=== PATIENT | female | born 1970 | race Caucasian/White ===

== ENCOUNTER → 2025-09-05 | Outpatient (CLI) | payer BC, SELFPAY ==
[2025-09-07 04:07] LABS: PROGESTERONE 0.6 ng/mL (.)
== END | disposition home or self-care (01) ==
LOC: MTLAB 13:56
PROVIDERS: PCP Nurse Practitioner Family; Referring Provider Nurse Practitioner Family; Visit Provider Nurse Practitioner Family
DX: R61 Generalized hyperhidrosis (principal); G47.00 Insomnia, unspecified; H93.19 Tinnitus, unspecified ear; I10 Essential (primary) hypertension; R41.89 Other symptoms and signs involving cognitive functions and awareness; E28.9 Ovarian dysfunction, unspecified
CPT/HCPCS: 36415; 82670; 84144

== ENCOUNTER → 2025-09-09 | Outpatient (CLI) | payer BC, SELFPAY ==
--- NOTE | 2025-09-09 13:28 | BI_ITS ---
EXAM: SCRN MAMM (CAD)W/GALA BILAT DATE: 09/09/2025 CLINICAL HISTORY: F, Age 55 y/o , SCREENING Aunts with breast cancer. TECHNIQUE: Procedure Code: [id number] Modality: MG Procedure: SCRN MAMM (CAD)W/GALA BILAT COMPARISON: Prior exam(s) dated prior outside examination dated November 16, 2023.. FINDINGS: TISSUE DENSITY: The breasts are heterogeneously dense, which may obscure small masses. Bilateral Breast Mammographic Findings: No significant masses, calcifications or other abnormalities are identified. Stable bilateral fat containing axillary lymph nodes. No suspicious masses, areas of developing architectural distortion, or suspicious calcifications. There has been no significant interval change. BI/SCRN MAMM (CAD)W/GALA BILAT IMPRESSION: Stable bilateral screening mammogram. OVERALL FINAL ASSESSMENT BI-RADS 2: BENIGN RECOMMENDATION: Routine annual follow-up in 1 Year Additional Recommendation none A letter with findings and recommendations will be mailed to the patient. Reading Location: [facility]
== END | disposition home or self-care (01) ==
LOC: OPBI 13:26
PROVIDERS: PCP Nurse Practitioner Family; Referring Provider Nurse Practitioner Family; Visit Provider Nurse Practitioner Family
DX: Z12.31 Encounter for screening mammogram for malignant neoplasm of breast (principal)
CPT/HCPCS: 77063; 77067